=== PATIENT | male | born 1970 | race Hispanic/Latino ===

== ENCOUNTER 2016-04-27 10:53 | Emergency (ER) | payer SELFPAY ==
--- NOTE | 2016-04-27 11:29 | ERNOTE ---
Medical Problem HPI - Narrative Date of Service: 04/27/16 - General Chief Complaint: General Assessment Time Seen by Provider: 04/27/16 11:13 Source: patient Exam Limitations: no limitations - Immun/Allergies/Home Medications Immunizations: IMMUNIZATION HX Immunizations Up to Date Yes Allergies/Adverse Reactions: Allergies No Known Allergies Allergy (Verified 04/27/16 11:05) Home Medications: HOME MEDICATIONS ALPRAZolam [Xanax] 0.25 mg PO TID PRN #30 tab 04/27/16 [Last Taken Unknown] - History of Present History Narrative: Pt. comes in with c/o not being able to sleep at night. Pt. states that he had a divorce four months ago from his of 19 years and it has made him depressed and he thinks constantly when he goes to sleep of his ex- and children as he has not been able to see them due to his work at the [employer]. Pt. denies the desire to harm himself but states that he cannot sleep and it is affecting his ability to think during the day at his job. Pt. states that he is only sleeping 2 hours a night. Pt. states that his thought race at night and he is anxious and his heart beats faster when he starts to think about his ex-. Review of Systems - Review of Systems Constitutional: Present: fatigue, weight loss. Absent: fever, chills, weakness , malaise, decreased activity level EYE: Present: no symptoms reported ENT: Present: no symptoms reported Respiratory: Present: no symptoms reported. Absent: shortness of breath, cough , wheezing Cardiology: Present: palpitations - only when anxious. Absent: chest pain, edema Gastrointestinal/Abdominal: Present: eating less. Absent: nausea, vomiting, diarrhea Genitourinary: Present: no symptoms reported Musculoskeletal: Present: no symptoms reported. Absent: back pain, joint pain Skin: Present: no symptoms reported Neurological: Present: anxiety, other - sleeplessness. Absent: headache, dizziness/light-headedness, numbness, tingling All Other Systems: All systems neg except as marked - Patient's Past Medical History Patient History - Medical: No pertinent hx Patient History - Cardiac/Respiratory: No pertinent hx Patient History - Cancer: No Hx of Cancer Patient History - Surgical Procedures: No surgical history - Social History Smoking Status: Never smoker - Immunizations Immunizations Up to Date: Yes Physical Exam - Physical Exam General Appearance: Present: wd/wn, alert, anxious Eye Exam: Normal inspection: bilateral, PERRL: bilateral, EOMI: bilateral Ears, Nose, Throat: Present: normal ENT inspection, hearing grossly normal, normal pharynx Neck: Present: normal inspection, nontender. Absent: lymphadenopathy (R), lymphadenopathy (L) Respiratory: Present: no respiratory distress, normal breath sounds, no accessory muscle use, chest nontender, lungs clear Cardiovascular/Chest: Present: regular rate, rhythm, no murmur, normal peripheral pulses Gastrointestinal/Abdominal: Present: normal bowel sounds, nontender, nondistended, soft, no organomegaly Back Exam: Present: normal inspection, normal range of motion, no CVA tenderness , no vertebral tenderness Extremity Exam: Present: normal inspection, non-tender, no edema, normal range of motion Neurological Exam: Present: alert, oriented, no motor/sensory deficits, other - anxious Skin Exam: Present: normal color, warm/dry. Absent: pallor, skin rash ED Progress - Date and Time Seen: Date and Time: 04/27/16 12:19 Feel that pt. is experiencing adjustment disorder and he ramirez not like the idea of all the time medication but feel that pt. needs to sleep soi will start on anxiolytic at bedtime and have him follow up for counselling to discuss recent divorce, as this is likely a temporary circumstance.. - Results and Orders Patient's Lab Results:: I have reviewed the patient's lab results. - Vital Signs Patient's Vital Signs:: I have reviewed the patient's vital signs. Vital Signs: Vital Signs 04/27/16 10:59 Temperature 35.3 C L Pulse Rate 65 Respiratory 14 Rate Blood Pressure 125/75 O2 Sat by Pulse 97 Oximetry - Progress/Reassessment Chief Complaint: General Assessment Departure - Departure Clinical Impression: Anxiety Sleeplessness Qualifiers: Insomnia type: adjustment Qualified Code(s): F51.02 - Adjustment insomnia Disposition: Home self-care Condition: Good Instructions: Panic Attacks, [id number], Insomnia Additional Instructions: Please eat a regular healthy diet, ensure plenty of exercise follow up with counsellor of your choice and follow up with primary provider in 2-3 days. Prescriptions: ALPRAZolam [Xanax] 0.25 mg PO TID PRN #30 tab PRN Reason: Anxiety
[2016-04-27 11:40] LABS: Urine Bilirubin Negative (NEGATIVE); Urine Blood Negative /ul (NEGATIVE); Urine Ketone Negative (NEGATIVE); Urine Nitrite Negative (NEGATIVE); Urine Protein Negative (NEGATIVE); Urine Specific Gravity 1.015 SP.GR. (1.005-1.030); Urine Urobilinogen Normal (NORMAL)
[2016-04-27 11:50] LABS: Hematocrit 49.6 % (42.0-52.0); Hemoglobin 16.6 gm/dL (13.5-18.0); Mean Cell Volume 88.9 fl (78-100); Mean Corpuscular Hemoglobin 29.7 pg (27-31); Mean Corpuscular Hgb Conc 33.5 g/dl (32-36); Mean Platelet Volume 10.6 fl (6.0-9.5); Neutrophil # 4.3 K/mm3 (1.3-6.0); Neutrophil % 62.2 % (42-75.0); Platelet Count 193 K/mm3 (150-450); Red Blood Count 5.58 M/mm3 (4.7-6.0); Red Cell Distribution Width 12.5 % (11.5-14.0); White Blood Count 6.9 K/mm3 (4.0-10.5)
[2016-04-27 11:53] LABS: Urine Appearance Clear; Urine Bacteria None Seen; Urine Color Yellow; Urine RBC None Seen /hpf (0-5); Urine WBC None Seen /hpf (0-5)
[2016-04-27 11:54] LABS: Cocaine Ur Negative (NEGATIVE); Urine Barbiturate Negative (NEGATIVE); Urine Benzodiazepines Negative (NEGATIVE); Urine Opiates Negative (NEGATIVE); Urine PCP Negative (NEGATIVE); Urine THC Negative (NEGATIVE)
[2016-04-27 11:55] VITALS: BP 154/72
[2016-04-27 12:12] LABS: Albumin * 3.9 gm/dl (3.4-5.0); Anion Gap 12.4 mmol/L (6.8-13.8); BUN/Creatinine Ratio 12.9 (9.0-21.6); Bilirubin, Total 1.4 mg/dL (0.0-1.1); Calcium * 9.2 mg/dL (7.9-10.9); Carbon Dioxide 29.6 mmol/L (24-32.6); TSH * 0.701 uIU/mL (0.358-3.74); Total Protein 7.7 gm/dL (6.2-8.2)
== END 2016-04-27 12:35 | disposition home or self-care (01) ==
LOC: ER 10:53
DX: F51.02 Adjustment insomnia (principal); F41.1 Generalized anxiety disorder
CPT/HCPCS: 36415; 80053; 81001; 84443; 85025; 99283; G0479